=== PATIENT | male | born 1960 | race Caucasian/White ===

== ENCOUNTER 2019-12-06 10:36 | Day surgery (SDC) | payer BC ==
[2019-12-02 14:46] VITALS: BMI 27.9
[2019-12-06] MEDS ORDERED: BUPIVACAINE HCL/EPINEPHRINE/PF 30 ML VIAL IJ ONE (13:06)
[2019-12-06] MEDS ORDERED: fentaNYL CITRATE 250 MCG/5 ML VIAL ONE (13:09)
[2019-12-06] MEDS ORDERED: MIDAZOLAM HCL 2 MG/2 ML SINGLE DOSE VIAL ONE ×2 (13:10)
[2019-12-06] MEDS ORDERED: EPHEDRINE SULFATE/0.9% NACL/PF 50 MG/10 ML SYRINGE NR ONE (13:17)
[2019-12-06] MEDS ORDERED: LIDOCAINE HCL/PF 2% SDV 5ML VIAL ONE (13:45)
[2019-12-06] MEDS ORDERED: DEXAMETHASONE SOD PHOSPHATE 4 MG/1 ML VIAL ONE (13:45)
[2019-12-06] MEDS ORDERED: ONDANSETRON 4 MG/2 ML VIAL ONE (13:45)
[2019-12-06] MEDS ORDERED: ceFAZolin SODIUM 1 GM VIAL ONE (13:45)
[2019-12-06] MEDS ORDERED: PROPOFOL 20 ML ONE (13:58)
[2019-12-06] MEDS ORDERED: BUPIVACAINE 0.25% /EPI 1:200,000 10 ML VIAL NR ONE (14:08)
[2019-12-06] MEDS ORDERED: oxyCODONE HCL 5 MG TABLET PO PRN ×2 (14:16)
[2019-12-06] MEDS ORDERED: ONDANSETRON 4 MG/2 ML VIAL IVPUSH PRN (14:16)
[2019-12-06] MEDS ORDERED: PROMETHAZINE HCL 25 MG/1 ML VIAL IVPB PRN (14:16)
[2019-12-06 15:18] VITALS: TEMP 97.8
[2019-12-06] MEDS ORDERED: oxyCODONE HCL 5 MG TABLET ONE (15:20)
--- NOTE | 2019-12-06 15:32 | OP ---
DATE OF OPERATION: 12/06/2019 SURGEON: Shawn Alaniz MD EXECUTIVE PRODUCER PROMOS: MARCIO Madrigal PREOPERATIVE DIAGNOSIS: Left elbow medial epicondylitis. POSTOPERATIVE DIAGNOSIS: Left elbow medial epicondylitis. PROCEDURE: Release of left elbow medial epicondyle. FINDINGS: Thickened scar tissue, medial epicondylar insertion of the flexion-pronator . PROCEDURE: Informed consent was obtained. Taken to the operating room where the left upper extremity was prepped and draped in sterile fashion. Tourniquet was placed on the upper arm and inflated to 250 mmHg. Incision was made from the medial epicondyle 6 cm distal. The tendon was identified. Careful attention made to avoid the ulnar nerve. The insertion to the tendon was identified on the medial epicondyle and an inverted U incision was made along the central third. This was lifted and underneath scar tissue was removed. Rongeur was used to create a bleeding surface along the medial epicondyle and this was sent for pathology, as well. Wound was then irrigated with copious amounts of irrigation. The tendon was reapproximated in a slightly lengthened position along the medial epicondyle. This was No. 2 sutures. Layered closure with 2-0 Vicryl and 3-0 Prolene was performed. Sterile dressing was placed. Patient was transferred to the recovery room without complication. The PA listed above was present and assisted at surgery. Their presence was absolutely medically necessary for the completion of the procedure. They helped hold the arthroscopy, pass instruments (and implants when indicated) and the procedure could not have been completed without their assistance. SHAWN ALANIZ M.D. [id number]
[2019-12-06 16:22] VITALS: BP 122/74; PULSE 78
--- NOTE | 2019-12-12 15:22 | PATH ---
Surgical Pathology Report Patient Name: JONATHAN HOOVER Med. Rec. #: [id number] /Age/Gender: 1960 (Age: 59) / M Account: [id number] Location: [facility] Taken: 12/06/2019 Received: 12/06/2019 Reported: 12/12/2019 Physicians: Isai Wilburn M.D. Specimen(s) Received LEFT ELBOW SCAR TISSUE Clinical History Medial epicondylitis left elbow Final Diagnosis SCAR TISSUE, LEFT ELBOW, EXCISION: FIBROCOLLAGENOUS TISSUE, FIBROCARTILAGINOUS TISSUE, SKELETAL, MUSCLE AND SCANT BONE. Electronically Signed Trini Feldman M.D. Gross Description Received in formalin labeled "left elbow scar tissue," is a 1.4 x 0.8 x 0.3 cm aggregate of velasco-brown soft tissue fragments. The specimen is submitted in toto in one cassette. 12/10/2019 [facility]12/10/2019
== END 2019-12-06 16:10 | disposition home or self-care (01) ==
LOC: FASU 10:36
PROVIDERS: ATTEND Orthopaedic Surgery
PROC: 0RBM0ZZ Excision of Left Elbow Joint, Open Approach (ICD-10-PCS; 2019-12-06)
PROC: 0LQ60ZZ Repair Left Lower Arm and Wrist Tendon, Open Approach (ICD-10-PCS; principal; 2019-12-06 13:25)
DX: M77.02 Medial epicondylitis, left elbow (principal)
CPT/HCPCS: 94760